=== PATIENT | male | born 1980 | race African-American/Black ===

== ENCOUNTER 2017-08-31 09:06 | Emergency (ER) | payer OTHER ==
[2017-08-31] MEDS: KETOROLAC 60 MG/2 ML VIAL (J1885) IM (09:35)
== END 2017-08-31 10:26 | disposition home or self-care (01) ==
LOC: M ED 09:06
DX: S83.8X1A Sprain of other specified parts of right knee, initial encounter (principal); X58.XXXA Exposure to other specified factors, initial encounter; Y92.009 Unspecified place in unspecified non-institutional (private) residence as the place of occurrence of the external cause; Y93.02 Activity, running; Z88.7 Allergy status to serum and vaccine
CPT/HCPCS: J1885